=== PATIENT | female | born 1985 | race African-American/Black ===

== ENCOUNTER 2024-02-20 00:20 | Emergency (ER) | payer MEDICAID, OTHER ==
[~2024-02-20] VITALS: Ht 170.2 cm; Wt 78.9 kg
[2024-02-20 00:31] VITALS: BP 103/61; PULSE 74; RESP 15; TEMP 98.4; O2SAT 100
[2024-02-20] MEDS ORDERED: KETOROLAC 15 MG/ML VIAL ONE (00:55)
[2024-02-20] MEDS: KETOROLAC 30 MG/ML VIAL IM ONE (01:07)
[2024-02-20] MEDS ORDERED: AMOX1TAB8 PO (01:10)
[2024-02-20] MEDS ORDERED: ACET-8905 PO (01:10)
== END 2024-02-20 02:04 | disposition home or self-care (01) ==
LOC: MED 00:20
DX: S61.032A Puncture wound without foreign body of left thumb without damage to nail, initial encounter (principal); Z79.899 Other long term (current) drug therapy; W54.0XXA Bitten by dog, initial encounter; Y93.89 Activity, other specified; Y92.488 Other paved roadways as the place of occurrence of the external cause; Y99.8 Other external cause status
CPT/HCPCS: 29130; 73140; 90471; 90715; 96372; 99284; J1885